=== PATIENT | male | born 1995 | race Caucasian/White ===

== ENCOUNTER 2017-10-26 19:35 | Inpatient (IN) | payer OTHER ==
[~2017-10-26] VITALS: Ht 177.8 cm; Wt 90.9 kg
[2017-10-26 20:00] LABS: BASO # 0.1 (0.0-0.2); BASO % 0.4 % (0.0-2.0); EOS # 0.3 (0.0-0.7); EOS % 1.9 % (0-4.0); GRAN # 12.9 (1.4-6.5); GRAN % 79.3 % (42.2-75.2); HEMATOCRIT 40.7 % (42.0-52.0); HEMOGLOBIN 13.8 g/dl (13.5-18.0); LYMPH # 1.6 (1.2-3.4); LYMPH % 9.6 % (20.0-51.0); MEAN CELL VOLUME 89 fl (80.0-100.0); MEAN CORPUSCULAR HEMOGLOBIN 30 pg (27.0-31.0); MEAN CORPUSCULAR HGB CONC 34 g/dl (33.0-37.0); MEAN PLATELET VOLUME 10.5 fl (7.4-10.4); MONO # 1.2 (0.1-0.6); MONO % 7.6 % (1.7-9.3); PLATELET COUNT 197 K/mm3 (130-400); RED BLOOD COUNT 4.56 M/mm3 (4.20-5.60); REDCELL DISTRIBUTION WIDTH-CV 12.2 % (11.5-14.5)
[2017-10-26 20:14] LABS: ALBUMIN 4.3 gm/dL (3.5-5.0); BILIRUBIN,TOTAL 0.7 mg/dL (0.0-1.0); CALCIUM 8.5 mg/dL (8.4-10.2); CREATININE, serum 1.07 mg/dL (0.66-1.25); POTASSIUM 3.9 mmol/L (3.4-5.0); TOTAL PROTEIN 7.6 gm/dL (6.4-8.2)
[2017-10-26 23:29] VITALS: BP 147/68; PULSE 86; TEMP 98.6
[2017-10-27] VITALS (12 sets, daily range): BP systolic 136–156; BP diastolic 60–86; PULSE 76–108; TEMP 98.1–100.2
[2017-10-28 00:11] VITALS: BP 129/53; PULSE 70; TEMP 98.2
[2017-10-28 03:44] VITALS: BP 128/61; PULSE 74; TEMP 98.8
[2017-10-28] MEDS ORDERED: NORCO 325 MG-7.1 TAB PO (06:33)
[2017-10-28] MEDS ORDERED: ULTRAM 50MG TAB50 MG PO (06:34)
[2017-10-28 06:51] LABS: HEMOGLOBIN 11.7 g/dl (13.5-18.0)
[2017-10-28 07:25] VITALS: BP 131/56; PULSE 85; TEMP 98.6
[2017-10-28 13:00] VITALS: BP 140/65; PULSE 100; TEMP 98.6
[2017-10-28 16:26] VITALS: BP 128/67; PULSE 79; TEMP 98.2
== END 2017-10-28 18:15 | disposition home or self-care (01) | DRG 494 ==
LOC: COL.ER 19:35 → JCC 21:02
PROVIDERS: Family Medicine; Orthopaedic Surgery
PROC: 0QSG36Z Reposition Right Tibia with Intramedullary Internal Fixation Device, Percutaneous Approach (ICD-10-PCS; principal; 2017-10-27 17:45)
DX: S82.291A Other fracture of shaft of right tibia, initial encounter for closed fracture (principal); S82.491A Other fracture of shaft of right fibula, initial encounter for closed fracture; V29.9XXA Motorcycle rider (driver) (passenger) injured in unspecified traffic accident, initial encounter
CPT/HCPCS: C1713; G0378; J0690; J1100; J1170; J1885; J2250; J2270; J2405; J2704; J2795; J3010; J7120; Q4041